=== PATIENT | female | born 1950 | race Caucasian/White ===

== ENCOUNTER 2018-07-31 15:26 | Inpatient (IN) | payer OTHER, MEDICARE ==
[~2018-07-31] VITALS: Ht 154.9 cm; Wt 54.4 kg
[~2018-07-31 15:26] MED LIST: TRAZ-182 PO
[2018-07-31] MEDS ORDERED: ONDA8TAB9 PO (16:34)
--- NOTE | 2018-07-31 16:46 | NUR ---
I NOTIFIED DR BARRETO OF PATIENT ABDOMINAL PAIN AND HX OF GASTRIC BYPASS. SHE IS AWAKE AND ALERT, FAMILY AT BEDSIDE, ON CONTINUOUS CARDIAC MONITORING...
[2018-07-31] MEDS ORDERED: ONDANSETRON 4 MG/2 ML VIAL IV ONE (17:00)
[2018-07-31] MEDS ORDERED: HYDROMORPHONE 1 MG/1 ML DISP.SYRIN IV ONE (17:00)
[2018-07-31] MEDS ORDERED: IV NORMAL SALINE 1000 ML BAG IV ONE (17:00)
[2018-07-31] MEDS ORDERED: HYDROMORPHONE 1 MG/1 ML DISP.SYRIN ONE (17:04)
[2018-07-31] MEDS ORDERED: ONDANSETRON 4 MG/2 ML VIAL ONE ×2 (17:04→17:44)
[2018-07-31 17:18] LABS: BASOPHILS % (AUTO) 0.6 % (0.0-2.0); EOSINOPHILS % (AUTO) 0.1 % (0.0-7.0); HEMATOCRIT 32.2 % (31.2-41.9); HEMOGLOBIN 10.6 g/dL (10.9-14.3); LYMPHOCYTES % (AUTO) 14.2 % (20.5-51.5); MEAN CORPUSCULAR HEMOGLOBIN 28.1 uug (24.7-32.8); MEAN CORPUSCULAR HGB CONC 33 g/dL (32.3-35.6); MEAN CORPUSCULAR VOLUME 85.1 fL (75.5-95.3); MONOCYTES # (AUTO) 0.5 K/uL (2.0-10.0); MONOCYTES % (AUTO) 7.1 % (0.0-11.0); NEUTROPHILS # (AUTO) 5.4 K/uL (1.8-8.9); PLATELET COUNT (AUTO) 336 K/uL (179-408); RED BLOOD CELL COUNT(AUTO) 3.78 MIL/uL (3.63-4.92)
[2018-07-31] MEDS ORDERED: FENTANYL CITRATE 100 MCG/2 ML AMPUL ONE (17:44)
[2018-07-31 17:45] LABS: BILIRUBIN,DIRECT 0.1 mg/dL (0.0-0.2); BILIRUBIN,TOTAL 0.2 mg/dL (0.2-1.0); CREATININE 0.9 mg/dL (0.6-1.3); POTASSIUM 4.1 mmol/L (3.5-5.1); TOTAL PROTEIN, SERUM 7.1 g/dL (6.4-8.2)
[2018-07-31] MEDS ORDERED: FENTANYL CITRATE 100 MCG/2 ML AMPUL IV ONE (17:45)
[2018-07-31] MEDS ORDERED: ONDANSETRON IV *ER 4 MG/2 ML VIAL IV ONE (17:45)
--- NOTE | 2018-07-31 17:51 | NUR ---
PATIENT STATED SHE STILL HAS PAIN, MORE MEDICATIONS GIVEN BY OTHER RN PER MD ORDER
[2018-07-31] MEDS ORDERED: SWABABLE VALVE TRANSFER SET EA MC ONE (17:58)
[2018-07-31] MEDS ORDERED: NORMAL SALINE FLUSH 10 ML DISP.SYRIN ONE (17:58)
[2018-07-31] MEDS ORDERED: IV NORMAL SALINE 250 ML IV ONE (17:59)
--- NOTE | 2018-07-31 18:54 | NUR ---
PATIENT BACK FROM CT. C/O SEVERE ABDOMINAL PAIN AND NAUSEA. DR COSTA AT BEDSIDE
--- NOTE | 2018-07-31 19:05 | NUR ---
Call placed to [email or web address]. Call back pending.
--- NOTE | 2018-07-31 19:06 | NUR ---
HAND OFF REPORT GIVEN TO JAMAR MULLIGAN
[2018-07-31] MEDS ORDERED: LORAZEPAM 2 MG/1 ML VIAL ONE (19:10)
[2018-07-31] MEDS ORDERED: METOCLOPRAMIDE HCL 10 MG/2 ML VIAL ONE (19:10)
[2018-07-31] MEDS ORDERED: METOCLOPRAMIDE HCL 10 MG/2 ML VIAL IV ONE (19:15)
[2018-07-31] MEDS ORDERED: LORAZEPAM 2 MG/1 ML VIAL IV ONE (19:15)
--- NOTE | 2018-07-31 19:36 | NUR ---
Pt. admitted to MED/SURG , under care of Dr. Potter. Diagnosis: Intractable Abdominal Pain. Belongs List completed. Report given to ESE Tinoco.
[2018-07-31 20:15] VITALS: BP 126/53
--- NOTE | 2018-07-31 20:20 | NUR ---
ADMITTED PATIENT IN MED SURG FLOOR UNDER THE CARE STEPHANY ZAMORA NP, BELONGING LIST DONE.
[2018-07-31] MEDS ORDERED: MAGNESIUM HYDROXIDE 30 ML LIQUID UDC PO PRN (21:30)
[2018-07-31] MEDS ORDERED: Z GUARD REMEDY PASTE 57 GM TUBE TOP PRN (21:30)
[2018-07-31] MEDS ORDERED: ZOLPIDEM 5 MG TABLET PO PRN (21:30)
[2018-07-31] MEDS ORDERED: LORAZEPAM 2 MG/1 ML VIAL IV PRN (21:30)
[2018-07-31] MEDS ORDERED: ACETAMINOPHEN 325 MG TABLET PO PRN (21:30)
[2018-07-31] MEDS: IV LACTATED RINGERS SOLUTION 1,000 ML IV PRN (22:03)
[2018-08-01] MEDS: ONDANSETRON 4 MG/2 ML VIAL IV PRN ×3 (02:09→21:17)
[2018-08-01] MEDS: HYDROCODONE/APAP 5-325MG TABLET PO PRN ×2 (02:11→09:33)
[2018-08-01 04:00] VITALS: BP 127/61
[2018-08-01 06:31] LABS: BASOPHILS % (AUTO) 0.1 % (0.0-2.0); HEMATOCRIT 31.3 % (31.2-41.9); HEMOGLOBIN 10.4 g/dL (10.9-14.3); LYMPHOCYTES # (AUTO) 0.7 K/uL (20.0-40.0); LYMPHOCYTES % (AUTO) 7.3 % (20.5-51.5); MEAN CORPUSCULAR HEMOGLOBIN 28.5 uug (24.7-32.8); MEAN CORPUSCULAR HGB CONC 33 g/dL (32.3-35.6); MEAN CORPUSCULAR VOLUME 85.5 fL (75.5-95.3); MONOCYTES # (AUTO) 0.5 K/uL (2.0-10.0); MONOCYTES % (AUTO) 5.2 % (0.0-11.0); NEUTROPHILS # (AUTO) 8.1 K/uL (1.8-8.9); NEUTROPHILS % (AUTO) 87.4 % (38.5-71.5); PLATELET COUNT (AUTO) 347 K/uL (179-408); RED BLOOD CELL COUNT(AUTO) 3.66 MIL/uL (3.63-4.92); WHITE BLOOD COUNT (AUTO) 9.3 K/uL (3.8-11.8)
--- NOTE | 2018-08-01 06:35 | NUR ---
PATIENT SLEPT MOST PART OF THE NIGHT, WITH ONE EPISODE OF NAUSEA AND VOMITING, MEDICATED WITH HELP. MEDICATED ALSO FOR PAIN WITH EFFECTIVE RESULT, PATIENT ON NPO ORDERED, ASSISTED WITH TOILETING, CALL LIGHT WITHIN REACH.
[2018-08-01 06:49] LABS: CREATININE 0.7 mg/dL (0.6-1.3); PHOSPHOROUS 3.8 mg/dL (2.5-4.9); POTASSIUM 3.9 mmol/L (3.5-5.1)
[2018-08-01 07:29] LABS: THYROID STIMULATING HORMONE 1.75 mIU/mL (0.358-3.740)
--- NOTE | 2018-08-01 08:07 | NUR ---
Received patient from Rubina material handler 1st shift RN. Patient alert and oriented, sitting up in bed, on room air, no sign of respiratory distress.
[2018-08-01] MEDS: PANTOPRAZOLE SODIUM 40 MG VIAL IV SCH (08:29)
[2018-08-01 11:10] VITALS: BP 126/62
[2018-08-01 15:36] VITALS: BP 145/72
[2018-08-01] MEDS: HYDROMORPHONE 2 MG/1 ML DISP.SYRIN IV PRN ×2 (15:49→21:19)
[2018-08-01] MEDS: IV LACTATED RINGERS SOLUTION 1,000 ML IV PRN (17:14)
--- NOTE | 2018-08-01 19:23 | NUR ---
Gave report to Earnest [employer] shift supervisor RN. Care plan reviewed. All questions answered.
--- NOTE | 2018-08-01 19:40 | NUR ---
RECEIVED PATIENT IN BED ALERT ORIENTED, NO COMPLAIN OF PAIN OR NAUSEA NOTED AT THIS TIME. CONT TO MONITOR.
[2018-08-01 20:00] VITALS: BP 140/73
[2018-08-01] MEDS ORDERED: GOLYTELY 4000 ML BOTTLE PO ONE (20:00)
--- NOTE | 2018-08-01 23:24 | NUR ---
PATIENT HAS EPISODES OF NAUSEA, MEDICATED FOR NAUSEA, AWAITING FOR MEDS KICK IN. THEN PATIENT STARTED GOLYTELY AT 2130 BUT STARTED VOMITING AFTER A CUP A HALF. UNABLE TO HOLD IN THE GOLYTELY, NOTIFIED DR. CARTER THAT PATIENT IS VOMITING AND UNABLE TO HOLD THE MEDS, MD ORDERED TO STOP GOLYTELY FOR NOW, NOTIFY THE PATIENT TO STOP.
[2018-08-02] MEDS: HYDROMORPHONE 2 MG/1 ML DISP.SYRIN IV PRN ×5 (03:32→20:31)
[2018-08-02 04:00] VITALS: BP 129/72
[2018-08-02 05:58] LABS: BASOPHILS % (AUTO) 0.2 % (0.0-2.0); CREATININE 0.6 mg/dL (0.6-1.3); EOSINOPHILS % (AUTO) 0.3 % (0.0-7.0); HEMOGLOBIN 9.7 g/dL (10.9-14.3); LYMPHOCYTES # (AUTO) 1.5 K/uL (20.0-40.0); LYMPHOCYTES % (AUTO) 20.2 % (20.5-51.5); MEAN CORPUSCULAR HEMOGLOBIN 27.4 uug (24.7-32.8); MEAN CORPUSCULAR HGB CONC 32 g/dL (32.3-35.6); MEAN CORPUSCULAR VOLUME 84.4 fL (75.5-95.3); MONOCYTES # (AUTO) 0.7 K/uL (2.0-10.0); MONOCYTES % (AUTO) 9.8 % (0.0-11.0); NEUTROPHILS # (AUTO) 5.2 K/uL (1.8-8.9); NEUTROPHILS % (AUTO) 69.5 % (38.5-71.5); PLATELET COUNT (AUTO) 314 K/uL (179-408); POTASSIUM 3.8 mmol/L (3.5-5.1); RED BLOOD CELL COUNT(AUTO) 3.55 MIL/uL (3.63-4.92); WHITE BLOOD COUNT (AUTO) 7.5 K/uL (3.8-11.8)
[2018-08-02] MEDS: PANTOPRAZOLE SODIUM 40 MG VIAL IV SCH (06:30)
[2018-08-02 08:00] VITALS: BP 164/76
[2018-08-02] MEDS: ONDANSETRON 4 MG/2 ML VIAL IV PRN (08:11)
--- NOTE | 2018-08-02 08:37 | NUR ---
Telephone call to Dr. Johnson at [phone] to follow-up if pt will still have EGD and Colonoscopy procedure today as bowel prep was not completed. Per Luisa at the answering service Anablela Johns NP is prison guard supervisor today. Paged Anabella c/o Luisa. Awaiting call back.
[2018-08-02] MEDS: IV LACTATED RINGERS SOLUTION 1,000 ML IV PRN (09:47)
--- NOTE | 2018-08-02 10:00 | NUR ---
Rec'd call back from Anabella Johns NP. Relayed member did not finish bowel prep for colonoscopy. Per OFFICE PROFESSIONAL, can still do EGD. Scheduled today for 2:30pm. Pt made aware.
--- NOTE | 2018-08-02 10:40 | NUR ---
Pt's BP at 0800 was 164/76 and 10/10 abd pain. Administered Dilaudid 1mg IV for the pain. BP still elevated at 158/79 post 2 hrs Dilaudid and pain at 3/10. Dr. Devon Potter made aware with no new orders at this time. Will continue to monitor for change.
[2018-08-02 11:04] VITALS: BP 158/79
[2018-08-02 15:05] VITALS: BP 137/78
--- NOTE | 2018-08-02 15:47 | NUR ---
Pt being picked up by x2 OR staff at this time for EGD procedure. Dilaudid 1mg IV given for 7/10 abd & back pain. Ok'd by anesthesiologist c/o Laila OR Nurse. No s/s of acute distress noted. All safety precautions in place. RFA 20g IV access in place and patent. at bedside.
[2018-08-02] MEDS ORDERED: LIDOCAINE HCL 2% 20 ML VIAL MC ONE (16:00)
[2018-08-02] MEDS ORDERED: IV NORMAL SALINE 1000 ML BAG IV ONE (16:00)
[2018-08-02] MEDS ORDERED: PROPOFOL 200 MG/20 ML BOTTLE IV ONE (16:00)
--- NOTE | 2018-08-02 16:49 | NUR ---
Rec'd call from Helen OR Nurse. Rec'd SBAR report. Pt done with EGD. Found with gastritis and duodenitis. VS stable. Noted with desaturation in the 92s% while sleeping during the procedure and was started no 2L O2 via n/c. Ok to resume all meds, resume previous diet. Per Helen, she faxed orders to pharmacy already. Pt on the way up from OR.
--- NOTE | 2018-08-02 16:55 | NUR ---
Pt back from OR. Awake, A&O x4. Denies pain at this time.VS: T98.0 HR 78 RR 18 SpO2 95% on 2L n/c B/P 121/65. Requested for alberto. All safety precautions in place at this time. Will continue to monitor.
[2018-08-02 17:20] VITALS: BP 121/65
--- NOTE | 2018-08-02 17:28 | NUR ---
Dr. Toure at bedside discussing EGD results and options for treatment with patient and her .
[2018-08-02 19:19] VITALS: BP 153/82
--- NOTE | 2018-08-02 21:50 | NUR ---
NSG: Received patient laying in bed. alert and oriented x4. no c/o pain or discomfort at this time. ivf running well. call light w/in reach.
[2018-08-03] MEDS: HYDROCODONE/APAP 5-325MG TABLET PO PRN (00:26)
[2018-08-03] MEDS: ONDANSETRON 4 MG/2 ML VIAL IV PRN (00:41)
[2018-08-03 03:23] VITALS: BP 141/75
[2018-08-03] MEDS: HYDROMORPHONE 2 MG/1 ML DISP.SYRIN IV PRN ×3 (04:58→13:40)
--- NOTE | 2018-08-03 05:57 | NUR ---
NSG: RESTING IN BED COMFORTABLY. DILAUDID X2 AND NORCO X1 GIVEN FOR PAIN THROUGH THE NIGHT. IVF RUNNING WELL. NO ACUTE DISTRESS NOTED. CALL LIGHT W/IN REACH. CONTINUE PLAN OF CARE.
[2018-08-03] MEDS: IV LACTATED RINGERS SOLUTION 1,000 ML IV PRN (06:17)
[2018-08-03] MEDS: PANTOPRAZOLE SODIUM 40 MG VIAL IV SCH (06:35)
[2018-08-03 09:31] VITALS: BP 133/65
[2018-08-03] MEDS ORDERED: BISACODYL 10 MG SUPP.RECT RC ONE ×2 (11:45→13:45)
[2018-08-03] MEDS ORDERED: METOCLOPRAMIDE HCL 10 MG/2 ML VIAL IV SCH (12:00)
[2018-08-03 12:11] VITALS: BP 159/79
--- NOTE | 2018-08-03 13:33 | NUR ---
SUPPOSITORY PROVIDED, NO BOWEL MOVEMENT AT THIS TIME CONTINUE TO MONITOR
[2018-08-03] MEDS ORDERED: FLEET ENEMA 133 ML BOTTLE RC ONE (13:45)
[2018-08-03 15:40] VITALS: BP 117/62
--- NOTE | 2018-08-03 15:44 | NUR ---
patient reports having three bowel movements, patient reports abdominal pain has improved. Enema effective.
--- NOTE | 2018-08-03 16:50 | NUR ---
Patient alert and oriented to person place time and situation, able to verbalize needs,patient discharge home with instructed on medications and follow up care, patient to follow up with PCP and Medical Office Receptionist Assistant in one week, verbalized understanding. patient educated on pain medication, verbalized she takes NORCO at home for pain, patient educated on med side effects especially constipation, patient may take Tylenol as needed for pain avoid NSAIDS. patient verbalized understanding, denies any distress pain improved after bowl movements, patient also educated on meds by [facility] Pharmacist up to see patient. Belongings returned and accounted for. questions and concerns addressed. educated on VTE, MRSA and smoking hazards. ID band removed and IV line removed. Patient meds faxed to pharmacy per patient request [facility] pharmacy , FAX [phone]. patient stable on discharge taken to car via wheelchair, patient reported she received her FLU AND PNA VACCINE at her MD office on 06/2018.
[2018-08-03] MEDS ORDERED: LIPASE/PROTEASE/AMYLASE 4200 UNITS CAPSULE.DR PO SCH (17:00)
== END 2018-08-03 16:50 | disposition home or self-care (01) | DRG 392 ==
LOC: ER 15:27 → MED 19:46
PROVIDERS: ADMIT Hospitalist; ATTEND Hospitalist
PROC: 0DB68ZX Excision of Stomach, Via Natural or Artificial Opening Endoscopic, Diagnostic (ICD-10-PCS; principal; 2018-08-02 16:00)
PROC: 0DC68ZZ Extirpation of Matter from Stomach, Via Natural or Artificial Opening Endoscopic (ICD-10-PCS; principal; 2018-08-02 16:00)
DX: K20.9 Esophagitis, unspecified (principal); R18.8 Other ascites; K29.70 Gastritis, unspecified, without bleeding; K63.89 Other specified diseases of intestine; Z98.84 Bariatric surgery status; Z90.49 Acquired absence of other specified parts of digestive tract; Z87.442 Personal history of urinary calculi; Z86.010 Personal history of colon polyps; Z82.49 Family history of ischemic heart disease and other diseases of the circulatory system; Z98.1 Arthrodesis status; Z87.898 Personal history of other specified conditions; I49.1 Atrial premature depolarization; K59.00 Constipation, unspecified; D64.9 Anemia, unspecified
CPT/HCPCS: 36415; 70030-TC; 71045; 83690; 83735; 84100; 84443; 85025; 85730; 88342; 93005; A4217; A4663; C9113; G0378; J1170; J2060; J2405; J2765; J3010; J3490; J7030; J7050; J7120